=== PATIENT | female | born 1960 | race Caucasian/White ===

== ENCOUNTER 2019-11-23 11:32 | Outpatient (CLI) | payer OTHER ==
--- NOTE | 2019-11-23 12:06 | RAD ---
XR Hand Lt 3 View STANDARD HISTORY: Polyarthralgia FINDINGS: No fracture or dislocation is identified. No significant arthritic changes are noted. There is a radiopaque ring obscuring portions of the shaft of the proximal phalanx of the ring finger
--- NOTE | 2019-11-23 12:08 | RAD ---
XR Hand Rt 3 View STANDARD HISTORY: Bilateral hand pain. Polyarthralgia FINDINGS: No fracture, dislocation or bony destruction is seen. There are mild degenerative changes i n the thumb.
== END 2019-11-23 11:33 | disposition home or self-care (01) ==
LOC: BICRAD 11:32
DX: M25.541 Pain in joints of right hand (principal); M25.542 Pain in joints of left hand

== ENCOUNTER 2022-03-26 15:26 | Outpatient (CLI) | payer OTHER | END 2022-03-26 15:27 | disposition home or self-care (01) | LOC: BICMAMMO 15:26 | PROVIDERS: ATTEND Family Medicine | DX: Z12.31 Encounter for screening mammogram for malignant neoplasm of breast (principal); Z13.820 Encounter for screening for osteoporosis; Z78.0 Asymptomatic menopausal state; M85.89 Other specified disorders of bone density and structure, multiple sites | CPT/HCPCS: 77063; 77067; 77080 ==

== ENCOUNTER 2024-05-10 10:58 | Outpatient (CLI) | payer SELFPAY ==
[2024-05-10 12:15] LABS: #Basophils 0.03 10x3/uL (0.0-0.2); #Eosinphils 0.11 10x3/uL (0.0-0.5); #Monocytes 0.58 10x3/uL (0.0-1.1); %Basophils 0.4 % (0.0-2.0); %Eosinophils 1.6 % (0.0-6.0); %Lymphocytes 11.6 % (18.0-47.0); %Monocytes 8.5 % (0.0-10.0); %Neutrophils 77.8 % (40.0-75.0); Hematocrit 38.6 % (34.9-44.5); Hemoglobin 12.4 g/dL (12.0-15.5); Mean Corpuscular HGB CONC 32.1 g/dL (32.0-36.0); Mean Corpuscular Hemoglobin 27.4 pg (27.0-33.0); Mean Corpuscular Volume 85.4 fL (81.6-98.3); Mean Platelet Volume 12.7 fL (7.4-10.4); Platelet Count 192 10x3/uL (150-450); RBC Distribution Width 15.1 % (11.5-14.5); Red Blood Cell (RBC) Count 4.52 10x6/uL (3.90-5.03); White Blood Cell (WBC) Count 6.8 10x3/uL (3.5-10.5)
== END 2024-05-10 10:59 | disposition home or self-care (01) ==
LOC: LABBT 10:58
PROVIDERS: ATTEND Surgery
DX: Z01.818 Encounter for other preprocedural examination (principal); K44.9 Diaphragmatic hernia without obstruction or gangrene
CPT/HCPCS: 85025; 93005; 93010

== ENCOUNTER 2024-05-10 11:00 | Inpatient (IN) | payer OTHER, SELFPAY ==
[2024-05-18] MEDS ORDERED: Rocuronium Bromide 10 MG/ML (10ML VIAL) ONE (13:33)
[2024-05-18] MEDS ORDERED: PROPOFOL 20 ML ONE (13:33)
[2024-05-18] MEDS ORDERED: fentaNYL PF 100 MCG/2 ML SYRINGE ONE ×2 (13:33→14:58)
[2024-05-18] MEDS ORDERED: Lidocaine 1% PF 5 ML VIAL ONE (13:33)
[2024-05-18] MEDS ORDERED: EPINEPHrine 1 MG/ML VIAL ONE (13:35)
[2024-05-18] MEDS ORDERED: Bupivacaine 0.25% HCL 30 ML VIAL ONE (13:36)
[2024-05-18] MEDS ORDERED: Propofol 500 MG/50 ML VIAL ONE (13:36)
[2024-05-18] MEDS ORDERED: CEFAZOLIN 2 GM VIAL ONE (13:46)
[2024-05-18] MEDS ORDERED: Sodium Chloride 0.9% 100 ML ONE (13:46)
[2024-05-18] MEDS ORDERED: Midazolam HCl 2 mg/2 ml Vial ONE (13:52)
[2024-05-18] MEDS ORDERED: Dexamethasone 20 MG/5 ML VIAL ONE (14:27)
[2024-05-18] MEDS ORDERED: Glycopyrrolate 0.2 MG/ML 5 ML SYRINGE ONE (14:44)
[2024-05-18] MEDS ORDERED: Labetalol HCl 100 MG/20 ML VIAL ONE (14:47)
[2024-05-18] MEDS ORDERED: SUGAMMADEX SODIUM 200 MG/2 ML VIAL ONE (15:25)
[2024-05-18] MEDS ORDERED: Fentanyl 250 MCG/5 ML VIAL ONE (15:56)
[2024-05-18] MEDS ORDERED: HYDROmorphone 0.5 MG/0.5 ML SYRINGE ONE ×2 (15:56→16:26)
[2024-05-18] MEDS ORDERED: Ondansetron PF 4 MG/2 ML Vial ONE (16:16)
[2024-05-18] MEDS ORDERED: Ondansetron PF 4 MG/2 ML Vial IVP PRN (17:55)
[2024-05-18] MEDS ORDERED: traMADol HCl 50 MG TAB PO PRN (17:55)
[2024-05-18] MEDS ORDERED: Morphine 4 MG/ML VIAL SLOW IVP PRN (17:55)
[2024-05-18] MEDS ORDERED: Dextrose 50% Abboject 50 ML SYRINGE SLOW IVP PRN (17:55)
[2024-05-18] MEDS ORDERED: Dextrose 5% in Water 1,000 ML IV PRN (17:55)
[2024-05-18] MEDS ORDERED: Promethazine HCl 25 MG/ML VIAL IM PRN (17:55)
[2024-05-18] MEDS ORDERED: Ipratropium/Albuterol 3 ML NEB NEB PRN (17:55)
[2024-05-18] MEDS ORDERED: Glucagon 1 MG/ML KIT IM PRN (17:55)
[2024-05-18] MEDS: D5 1/2 NS w/20 mEq KCL 1,000 ML IV SCH (18:59)
[2024-05-18] MEDS: Ketorolac Tromethamine 30 MG (1 mL) VIAL IVP SCH (19:00)
[2024-05-18] MEDS: Acetaminophen 500 MG TAB PO SCH (21:11)
[2024-05-18] MEDS: traMADol HCl 50 MG TAB PO PRN (21:11)
[2024-05-19 02:47] VITALS: BMI 36.6
[2024-05-19] MEDS ORDERED: MAGNESIUM GLYCINATE 100 MG PO SCH (09:00)
[2024-05-19] MEDS: Lisinopril 20 MG TAB PO SCH (10:06)
[2024-05-19] MEDS: Enoxaparin 40 MG (0.4 mL) SYRINGE SC SCH (10:06)
[2024-05-19] MEDS: Pantoprazole 40 MG VIAL IVP SCH (10:08)
[2024-05-19] MEDS: hydrALAZINE 20 MG/ML VIAL SLOW IVP PRN (10:12)
[2024-05-19 11:58] VITALS: BP 146/70; TEMP 97.7
== END 2024-05-19 13:15 | disposition home or self-care (01) | DRG 328 ==
LOC: SURG A 05-18 10:59 → SJJU 05-18 17:53
PROVIDERS: ADMIT Surgery; ATTEND Surgery
PROC: 0BQT4ZZ Repair Diaphragm, Percutaneous Endoscopic Approach (ICD-10-PCS; principal; 2024-05-18)
PROC: 0DV44ZZ Restriction of Esophagogastric Junction, Percutaneous Endoscopic Approach (ICD-10-PCS; 2024-05-18)
PROC: 8E0W4CZ Robotic Assisted Procedure of Trunk Region, Percutaneous Endoscopic Approach (ICD-10-PCS; 2024-05-18)
DX: K44.9 Diaphragmatic hernia without obstruction or gangrene (principal); I10 Essential (primary) hypertension; K21.9 Gastro-esophageal reflux disease without esophagitis; Z88.0 Allergy status to penicillin; Z88.2 Allergy status to sulfonamides; Z79.899 Other long term (current) drug therapy
CPT/HCPCS: C9113; J0171; J0360; J0665; J1100; J1170; J1650; J1885; J2250; J2405; J2704; J3010; J3480; J3490

== ENCOUNTER 2024-06-29 23:56 | Emergency (ER) | payer OTHER, SELFPAY ==
[2024-06-30 00:57] LABS: #Basophils Less than 0.03 10x3/uL (0.0-0.2); %Basophils 0.4 % (0.0-1.0); %Eosinophils 3.2 % (0.0-10.0); %Lymphocytes 15.8 % (21.0-51.0); %Monocytes 6.4 % (0.0-10.0); %Neutrophils 73.8 % (42.0-75.0); Hemoglobin 12.4 g/dL (12.0-16.0); Mean Corpuscular HGB CONC 31.8 g/dL (32.0-36.0); Mean Corpuscular Hemoglobin 26.8 pg (27.0-31.0); Mean Corpuscular Volume 84.4 fL (78.0-98.0); Mean Platelet Volume 12.2 fL (7.4-10.4); Platelet Count 197 10x3/uL (130-400); RBC Distribution Width 14.8 % (11.5-14.5); Red Blood Cell (RBC) Count 4.62 mill/uL (4.20-5.40)
[2024-06-30 01:17] LABS: Troponin I 0.012 ng/mL (< 0.028)
[2024-06-30 01:25] LABS: ALT (SGPT) 17 U/L (8-55); AST (SGOT) 20 U/L (5-34); Albumin 4.1 g/dL (3.4-4.8); Alkaline Phosphatase 130 U/L (40-110); Anion Gap 15 mmol/L (10-20); BUN (Urea Nitrogen) 17 mg/dL (9.8-20.1); Bilirubin, Total 0.4 mg/dL (0.2-1.2); Calc. Creatinine Clearance 0 mL/min (70-130); Calcium 9.9 mg/dL (7.8-10.44); Carbon Dioxide 27 mmol/L (23-31); Chloride 102 mmol/L (98-107); Estimated GFR 78; Globulin 3.8 g/dL (2.4-3.5); Glucose 98 mg/dL (80-115); Lipase 87 U/L (8-78); Potassium 3.7 mmol/L (3.5-5.1); Protein, Total 7.9 g/dL (5.8-8.1); Sodium 140 mmol/L (136-145)
== END 2024-06-30 02:53 | disposition home or self-care (01) ==
LOC: ERS 23:56
DX: R07.89 Other chest pain (principal); I10 Essential (primary) hypertension
CPT/HCPCS: 71045; 80053; 83690; 83880; 84484; 85025; 93005; 94760